=== PATIENT | male | born 2000 | race African-American/Black ===

== ENCOUNTER 2024-08-07 21:11 | Observation (INO) | payer SELFPAY ==
--- NOTE | 2024-08-07 | ECG_ITS ---
Test Reason : CHEST PAIN Blood Pressure : / mmHG Vent. Rate : 073 BPM Atrial Rate : 073 BPM P-R Int : 160 ms QRS Dur : 090 ms QT Int : 362 ms P-R-T Axes : 070 083 053 degrees QTc Int : 398 ms Normal sinus rhythm with sinus arrhythmia Normal ECG No previous ECGs available Referred By: Generic ED Physician Electronically Signed By:JONO PARRISH MD
--- NOTE | ~2024-08-07 | XR_ITS ---
EXAMINATION: XR CHEST CLINICAL INFORMATION: Cough and chest pain COMPARISON: None available. TECHNIQUE: 2 views of the chest were obtained. FINDINGS: No significant abnormality is noted involving the heart, lungs, mediastinum, bony thorax or soft tissues. XR/XR chest 2V IMPRESSION: Unremarkable examination. Electronically signed by: Raul Murray MD 08/07/2024 10:52 PM [facility]
[2024-08-07 21:23] VITALS: BP 139/71; PULSE 63; RESP 18; TEMP 36.7; O2SAT 96; BMI 22.2
--- NOTE | 2024-08-07 22:17 | ED.URI ---
HPI - URI/Sore Throat General Chief Complaint: Upper Respiratory Symptoms Stated Complaint: sob, chest pain Time Seen by Provider: 08/07/24 22:07 History of Present Illness HPI Narrative: Patient is 24 years old positive history of asthma. Patient has not been admitted to the hospital over 10 years. No history of smoking. Positive coughing upper respiratory symptoms. Patient is from home. Using jwzl-wiz-hxcokhr medication but to no avail. No fever no chills. Related Data Allergies Allergy/AdvReac Type Severity Reaction Status Date / Time flu shot Allergy Unknown Uncoded 08/07/24 21:26 Review of Systems Review of Systems: Positive coughing upper respiratory symptoms Positive wheezing Yes all other systems are reviewed and are negative [facility] Past Medical History Attestation statement: The following information was validated with the patient. Social History Social History Substance Use Type: Marijuana Advance Directives: No Advance Directives Information Provided: No Do you have a plan to hurt others: No Plan Physical Exam Vital Signs: Vital Signs: Last Vital Signs Temp 98.0 F 08/07/24 21:23 Pulse 97 08/07/24 22:28 Resp 18 08/07/24 22:28 BP 139/71 08/07/24 21:23 Pulse Ox 98 08/07/24 22:55 O2 Del Method Room Air 08/07/24 22:55 BMI result Body Mass Index 22.2 Appearance: Alert. Oriented X3. No acute distress. Eyes: Pupils equal, round and reactive to light. ENT: Pharynx normal. Neck: Normal inspection. Neck supple. No lymph nodes noted. No crepitus CVS: Normal heart rate and rhythm. Pulses normal. Normal S1 and S2 Respiratory: No respiratory distress. Positive wheezing bilaterally. Abdomen: Soft and nontender. No rigidity. No distention. good BS x4 Skin: Skin warm and dry. Normal skin color. Normal skin turgor. Extremities: No lower extremity edema. Neurovascular intact to all extremities. No Lacerations. No Rash Neuro: Oriented X 3. No motor deficit. No sensory deficit. Moving all extermities. No slurred speech Medications Administered Discontinued Medications Generic Name Dose Route Start Last Admin Trade Name Freq PRN Reason Stop Dose Admin Albuterol Sulfate 2.5 mg/ 5 mg 08/07/24 22:16 08/07/24 22:25 Albuterol Sulfate 2.5 mg INHALE 08/07/24 22:17 5 mg ONCE ONE Administration Albuterol/Ipratropium 3 ml 08/07/24 22:16 08/07/24 22:25 Albuterol/Iprat 2.5/0.5mg 3 Ml Ampul.Neb INHALE 08/07/24 22:17 3 ml ONCE ONE Administration Prednisone 60 mg 08/07/24 22:16 08/07/24 22:21 Prednisone 20 Mg Tablet PO 08/07/24 22:17 60 mg ONCE ONE Administration Medical Decision Making Medical Decision Making [facility] Narrative: Patient is 24 years old presents today with having history of asthma. Been admitted in the past. Presented today with having increasing shortness of breath. Wheezing. Patient's COVID flu RSV were all negative. A dose of steroid was given. A dual neb along with 2 albuterol neb treatment was given. Patient was reassess still having extreme wheezing bilaterally. Not moving good air. Had a long discussion with patient. He is willing to stay in the hospital. Patient's case discussed with the hospitalist team. They wanted some additional blood work which was ordered. Currently in stable condition awaiting admission my interpretation of patient's chest x-ray showed no focal infiltrates. Additional magnesium and treatment will be ordered. Differential Diagnosis Differential Diagnoses: The differential diagnosis associated with the presentation includes Asthma, flu, COVID, RSV Admission/Observation Consideration of admission/observation: Escalation of care including admission/observation considered Consult Healthcare Provider Management of the patient was discussed with: Hospitalist Lab Data [facility] Lab Attestation statement: I reviewed the patient's lab results. Labs: Lab Results 08/07/24 Range/Units 21:46 Influenza Type A (PCR) NEGATIVE (Negative) Influenza Type B (PCR) NEGATIVE (Negative) RSV RNA Qual (PCR) NEGATIVE (Negative) SARS-CoV-2 RNA (RT-PCR) NEGATIVE (Negative) Independent Interpretation I performed an independent interpretation of an: Plain X-Ray (Chest x-ray showed no focal infiltrate) Radiology Impression Discussion of test interpretation with radiology: I have reviewed the radiologist's reading. External Record Review External record reviewed: Inpatient record Discharge Plan Discharge Patient Disposition: Admitted As Inpatient Print Language: Nigerien
[2024-08-07] MEDS: predniSONE 20 MG TABLET 60 MG PO (22:21)
--- NOTE | 2024-08-07 22:23 | PC.NURSE ---
Provider into assess pt, respiratory called for a breathing treatment, pt is able to speak in full sentences, pt has wheeze through out uppper and lower lungs, no belly retraction.
[2024-08-07] MEDS: Albuterol/Iprat 2.5/0.5MG 3 ML AMPUL.NEB INHALE (22:25)
[2024-08-07] MEDS: Albuterol Sulfate 2.5 MG, Albuterol Sulfate (0.083%) 2.5 MG 5 MG INHALE (22:25)
[2024-08-07 22:28] VITALS: PULSE 97; RESP 18; O2SAT 98
[2024-08-07 22:28] LABS: Influenza A PCR NEGATIVE (Negative); Influenza B PCR NEGATIVE (Negative); Resp Syncy Virus RNA Qual PCR NEGATIVE (Negative); SARS COV2 PCR INHOUSE NEGATIVE (Negative)
[2024-08-07 22:55] VITALS: O2SAT 98
[2024-08-07] MEDS: Albuterol Sulfate (0.083%) 2.5 MG/3 ML VIAL.NEB 5 MG INHALE (23:57)
[2024-08-07 23:59] VITALS: PULSE 100; RESP 14; O2SAT 97
[2024-08-08] VITALS (15 sets, daily range): BP systolic 112–133; BP diastolic 56–82; PULSE 76–113; RESP 14–20; TEMP 36.4–36.9; O2SAT 94–98; BMI 22.2
[2024-08-08 00:06] LABS: MANUAL DIFF FLAG NO
[2024-08-08 00:07] LABS: Basophils Absolute Auto 0.1 X10*3/uL (0.0-0.2); Basophils Percent Auto 0.5 % (0-2); Eosinophils Absolute Auto 0.3 X10*3/uL (0.0-0.4); Eosinophils Percent Auto 2.6 % (0-4); Hemoglobin 15.8 g/dl (14.0-18.0); Imm Gran Abs Auto 0.04 X10*3/uL (0.00-0.03); Imm Gran Pct Auto 0.3 % (0.0-0.4); Lymphocytes Absolute Auto 1.2 X10*3/uL (1.2-4.9); Lymphocytes Percent Auto 9.5 % (20-40); Mean Corpuscular HGB Conc 34.3 g/dl (31.0-36.0); Mean Corpuscular Hemoglobin 29.1 pg (27.0-33.0); Mean Corpuscular Volume 84.7 fL (80.0-98.0); Mean Platelet Volume 10.4 fL (9.4-12.4); Monocytes Absolute Auto 0.6 X10*3/uL (0.1-1.2); Monocytes Percent Auto 4.5 % (2-11); Neutrophils Absolute Auto 10.6 x10*3/uL (2.0-8.3); Neutrophils Percent Auto 82.6 % (45-73); Platelet Count 202 X10*3/uL (160-400); Red Blood Count 5.43 X10*6/uL (4.60-5.80); Red Cell Distribution Width 13.3 % (11.0-16.0); White Blood Count 12.8 X10*3/uL (4.8-10.8)
[2024-08-08] MEDS: Magnesium Sulfate/H2O 2 GM/50 ML PIGGYBACK IV (00:15)
[2024-08-08 00:22] LABS: Anion Gap 12 (12-20); Blood Urea Nitrogen 11 mg/dL (9-16); Calcium 9.8 mg/dL (8.4-10.2); Carbon Dioxide 26 mmol/L (22-29); Chloride 104 mmol/L (96-108); Estimated Glomerular Filt Rate > 60; Glucose Random 114 mg/dL (60-115); Potassium 3.8 mmol/L (3.3-5.1); Sodium 138 mmol/L (135-145)
--- NOTE | 2024-08-08 01:23 | P.HPHOSP_ITS ---
History of Present Illness Date of Service: 08/08/24 Attending physician on admission: Audrey Damon Chief Complaint: Shortness of breaths Reagan Fang is a very pleasant 24 years old man with past medical history significant for asthma presents to the emergency department complaining of worsening shortness of breath over the last 2 days associated with bubbly sensation in the middle of his chest associated with dry cough, wheezing and left-sided rib cage pain with inspiration. He did reported episode sweating and suggestive fever. He has been taking bdxk-syj-wvsgrdi cough medications with no significant improvement of symptoms. He smoked marijuana very frequently. Did not report tobacco smoking, alcohol abuse or illicit drug use. He is not using daily inhalers. Last asthma attack was about 10 years ago. In the ED, he was found to have stable vital signs. His oxygen saturation is 97% on room air. Blood workup was remarkable for leukocytosis of 12.9 (after steroids given). Hemoglobin and platelets are normal. Electrolytes and renal function are normal. Viral testing is negative for influenza, RSV and COVID. CXR showed no pneumothorax, consolidation or pleural effusions. ECG showed normal sinus rhythm (HR 73 bpm) and no ischemic changes. ED tx: Prednisone 60 mg p.o., DuoNeb X2, magnesium sulfate 2 g IV Review of Systems 2 Review of Systems: All 12 systems were reviewed and normal except as noted in HPI. [facility] Medical History (Updated 08/08/24 @ 01:36 by Audrey Damon MD) Asthma Social History Substance Use Type: Marijuana Advance Directives: No Advance Directives Information Provided: No Do you have a plan to hurt others: No Plan Meds Allergies Allergy/AdvReac Type Severity Reaction Status Date / Time nuts Allergy Unknown Unknown Uncoded 08/08/24 01:19 Shellfish Allergy Unknown Unknown Uncoded 08/08/24 01:26 flu shot Allergy Unknown Uncoded 08/07/24 21:26 Active Medications: Current Medications Acetaminophen (Acetaminophen 325 Mg Tablet) 975 mg PO Q6H PRN PRN Reason: Pain, Mild (Pain Scale 1-3), fever or headache Albuterol Sulfate (Albuterol Sulfate (0.083%) 2.5 Mg/3 Ml Vial.Neb) 2.5 mg INHALE Q2H PRN PRN Reason: Shortness of Breath/Wheezing Albuterol/Ipratropium (Albuterol/Iprat 2.5/0.5mg 3 Ml Ampul.Neb) 3 ml INHALE RQ4H [facility] Albuterol Sulfate 2.5 mg/ (Albuterol/Ipratropium 3 ml) 0 mg INHALE ONCE STA Stop: 08/08/24 01:22 Magnesium Sulfate (Magnesium Sulfate/H2o) 2 gm in 50 mls @ 25 mls/hr IV ONCE ONE Stop: 08/08/24 01:53 Last Admin: 08/08/24 00:15 Dose: 25 mls/hr Melatonin (Melatonin 3 Mg Tablet) 6 mg PO BEDTIME PRN PRN Reason: Insomnia Methylprednisolone Sodium Succinate (Methylprednisolone Sod Succ 125 Mg/2 Ml Vial) 80 mg IVPUSH DAILY [facility] Sodium Chloride (0.9 % Sodium Chloride Flush 3 Ml Syringe) 3 ml IVFLUSH QSHIFT [facility] Physical Exam 2 Vital Signs and Narrative: Vital Signs: Last Vital Signs Temp 98.4 F 08/08/24 00:00 Pulse 113 H 08/08/24 00:00 Resp 20 08/08/24 00:00 BP 131/77 08/08/24 00:00 Pulse Ox 97 08/08/24 00:00 O2 Del Method Room Air 08/08/24 00:00 BMI result Body Mass Index 22.2 Constitutional - Awake and Alert, No apparent distress. Pleasant. Cooperative. Afebrile. HEENT - PER, EOMI. Oropharynx minimally hyperemic without exudate. Heart - S1S2, RRR, No murmurs. Lungs - Normal lung expansion, Normal respiratory effort, No respiratory distress. No tachypnea. End expiratory wheezes. No crackles. Abdomen - Nontender. - No CVA tenderness Extremities - no calf tenderness bilaterally, no swelling Musculoskeletal - Normal inspection, normal ROM Skin - Warm/Dry Neurological - Alert & oriented x3. No focal weakness grossly noted. Normal speech. Psychological - Appropriate affect Results Labs 08/08/24 00:02 08/08/24 00:02 Labs: Laboratory Results - last 24 hr 08/07/24 08/08/24 21:46 00:02 MCV 84.7 MCH 29.1 MCHC 34.3 RDW 13.3 Plt Count 202 MPV 10.4 Immature Gran % (Auto) 0.3 Neut % (Auto) 82.6 H Lymph % (Auto) 9.5 L [place] % (Auto) 4.5 Eos % (Auto) 2.6 Baso % (Auto) 0.5 Lymph # (Auto) 1.2 [place] # (Auto) 0.6 Eos # (Auto) 0.3 Baso # (Auto) 0.1 Abs Immat Gran (auto) 0.04 H Absolute Neuts (auto) 10.6 H Absolute Nucleated RBC 0.000 Nucleated RBC % (auto) 0.0 Anion Gap 12 Estim Creat Clear Calc 114.0 Estimated GFR > 60 Random Glucose 114 Calcium 9.8 Influenza Type A (PCR) NEGATIVE Influenza Type B (PCR) NEGATIVE RSV RNA Qual (PCR) NEGATIVE SARS-CoV-2 RNA (RT-PCR) NEGATIVE Imaging Radiologist's Impressions: Impressions Chest X-Ray 08/07/24 21:32 IMPRESSION: Unremarkable examination. Electronically signed by: Raul Murray MD 08/07/2024 10:52 PM [facility] Assessment and Plan (1) Asthma exacerbation: Qualifiers: Asthma severity: unspecified severity Asthma persistence: unspecified Qualified Code(s): J45.901 - Unspecified asthma with (acute) exacerbation Status: Acute Plan Reagan Fang is a 24 y/o man admitted with: * Acute asthma exacerbation; pt is stating he feels the same. No hypoxia (O2 sat 97% on RA). No respiratory distress. No significant leukocytosis (however, CBC was obtained after prednisone was given). CXR is normal. Observation. Pulse oximetry. Continue bronchodilator therapy and steroids. Mucinex 600 mg PO bid. Advised to consider quitting smoking marijuana. Quality Stroke Does the patient have a stroke diagnosis?: No VTE Prior VTE?: No VTE Risk Level:: Medical - low VTE Device Contraindication: Treatment Not Indicated VTE Drug Contraindication: Treatment Not Indicated
[2024-08-08] MEDS: guaiFENesin DM 600/30 1 TAB TAB.ER.12H PO ×3 (01:35→20:13)
[2024-08-08] MEDS: Albuterol Sulfate 2.5 MG, Albuterol/Iprat 2.5/0.5MG 3 ML 3 ML INHALE (01:42)
[2024-08-08] MEDS: Albuterol/Iprat 2.5/0.5MG 3 ML AMPUL.NEB INHALE ×5 (06:10→23:52)
--- NOTE | 2024-08-08 06:55 | PC.NURSE ---
report given to Jess. DUVAL
[2024-08-08] MEDS: 0.9 % Sodium Chloride Flush 3 ML SYRINGE IVFLUSH ×3 (07:34→20:13)
--- NOTE | 2024-08-08 08:16 | HO.STUDENTPN ---
Subjective Subjective Date of Service: 08/08/24 Interval History: Reports feeling the same generally- still wheezy, but little bit clearer and less coughing Review of Systems All 12 systems were reviewed and normal except as noted in HPI. Physical Exam Vital Signs: Vital Signs: Last Vital Signs Temp 98.5 F 08/08/24 06:00 Pulse 88 08/08/24 07:35 Resp 19 08/08/24 07:35 BP 118/59 L 08/08/24 07:35 Pulse Ox 97 08/08/24 07:35 O2 Del Method Room Air 08/08/24 07:35 BMI result Body Mass Index 22.2 Const: Orientation/consciousness: patient oriented x3 Chest: Chest palpation & inspection: normal inspection of the chest Resp: Effort & Inspection: normal respiratory effort, able to speak in complete sentences and Actively coughing Quality: dry Auscultation: wheezes expiratory wheezes and throughout Cardio: Rate: regular rate Rhythm: regular rhythm Heart sounds: S1 normal heart sound present and S2 normal heart sound present Neuro: General: patient oriented x3 Objective Data Active Medications Acetaminophen (Acetaminophen 325 Mg Tablet) 975 mg PO Q6H PRN PRN Reason: Pain, Mild (Pain Scale 1-3), fever or headache Albuterol Sulfate (Albuterol Sulfate (0.083%) 2.5 Mg/3 Ml Vial.Neb) 2.5 mg INHALE Q2H PRN PRN Reason: Shortness of Breath/Wheezing Albuterol/Ipratropium (Albuterol/Iprat 2.5/0.5mg 3 Ml Ampul.Neb) 3 ml INHALE RQ4H [facility] Last Admin: 08/08/24 06:10 Dose: 3 ml Documented By: KYRIE Guaifenesin/Dextromethorphan (Guaifenesin Dm 600/30 1 Tab Tab.Er.12h) 1 tab PO BID [facility] Last Admin: 08/08/24 01:35 Dose: 1 tab Documented By: ISABEL Melatonin (Melatonin 3 Mg Tablet) 6 mg PO BEDTIME PRN PRN Reason: Insomnia Methylprednisolone Sodium Succinate (Methylprednisolone Sod Succ 125 Mg/2 Ml Vial) 80 mg IVPUSH DAILY [facility] Sodium Chloride (0.9 % Sodium Chloride Flush 3 Ml Syringe) 3 ml IVFLUSH QSHIFT [facility] Last Admin: 08/08/24 07:34 Dose: 3 ml Documented By: SOCO Labs 08/08/24 00:02 08/08/24 00:02 Labs: Laboratory Results - last 24 hr 08/07/24 08/08/24 21:46 00:02 MCV 84.7 MCH 29.1 MCHC 34.3 RDW 13.3 Plt Count 202 MPV 10.4 Immature Gran % (Auto) 0.3 Neut % (Auto) 82.6 H Lymph % (Auto) 9.5 L [place] % (Auto) 4.5 Eos % (Auto) 2.6 Baso % (Auto) 0.5 Lymph # (Auto) 1.2 [place] # (Auto) 0.6 Eos # (Auto) 0.3 Baso # (Auto) 0.1 Abs Immat Gran (auto) 0.04 H Absolute Neuts (auto) 10.6 H Absolute Nucleated RBC 0.000 Nucleated RBC % (auto) 0.0 Anion Gap 12 Estim Creat Clear Calc 114.0 Estimated GFR > 60 Random Glucose 114 Calcium 9.8 Influenza Type A (PCR) NEGATIVE Influenza Type B (PCR) NEGATIVE RSV RNA Qual (PCR) NEGATIVE SARS-CoV-2 RNA (RT-PCR) NEGATIVE Assessment and Plan Plan 24 yo male with PMH significant for asthma, who presents to ED for increased shortness of breath x 2 days Quality Stroke Does the patient have a stroke diagnosis?: No VTE Prior VTE?: No VTE Risk Level:: Medical - low VTE Device Contraindication: Treatment Not Indicated VTE Drug Contraindication: Treatment Not Indicated
[2024-08-08] MEDS: methylPREDNISolone Sod Succ 125 MG/2 ML VIAL 80 MG IVPUSH (08:29)
--- NOTE | 2024-08-08 08:43 | PC.NURSE ---
Pt alert and oriented, breathing even and unlabored but wheezing remains bilat. SPO2 >94% on RA. NSR on bedside security monitor. Denies pain, reports a tightness and weird feeling in his chest that has been ongoing since this started.
--- NOTE | 2024-08-08 09:41 | PM.EVENT ---
Event Note Date of Service: 08/08/24 Event Note: 24 year old man admitted with acute asthma exacerbation Acute asthma exacerbation No hypoxia noted No consolidation or effusion on chest x-ray IV Solu-Medrol, scheduled DuoNebs Not currently on oxygen but may use oxygen to keep oxygen saturation greater than 92% Incentive spirometer Leukocytosis Likely secondary to steroid use Marijuana use Discussed importance of cessation to avoid triggers of asthma exacerbation DVT prophylaxis with early ambulation Full code Time Spent With Patient Time: Total time managing care of this patient today ____ minutes.
--- NOTE | 2024-08-08 09:42 | PHA.MEDREC ---
Addendum entered by Kermit Metzger RPh 08/08/24 10:17: Reviewed by [facility] Original Note: Pharmacy Consult ? Medication Reconciliation Pharmacy has completed the medication reconciliation. Patient states he is not on any medications.
--- NOTE | 2024-08-08 14:06 | MHC.CM.PN ---
pt lives alone is working and indepedent has own ride home
[2024-08-09] VITALS (9 sets, daily range): BP systolic 122–141; BP diastolic 59–71; PULSE 85–113; RESP 16–18; TEMP 36.4–37.1; O2SAT 96–99
[2024-08-09] MEDS: Albuterol/Iprat 2.5/0.5MG 3 ML AMPUL.NEB INHALE ×5 (04:12→19:30)
[2024-08-09] MEDS: 0.9 % Sodium Chloride Flush 3 ML SYRINGE IVFLUSH ×3 (09:17→20:11)
[2024-08-09] MEDS: methylPREDNISolone Sod Succ 125 MG/2 ML VIAL 80 MG IVPUSH (09:17)
[2024-08-09] MEDS: guaiFENesin DM 600/30 1 TAB TAB.ER.12H PO ×2 (09:17→20:11)
--- NOTE | 2024-08-09 09:17 | HO.PM.IMPN ---
Subjective Subjective Date of Service: 08/09/24 Interval History: Follow-up asthma exacerbation Still with some expiratory wheezing Review of Systems Review of Systems: Yes all other systems are reviewed and are negative Respiratory Respiratory: Reports cough (dry) Physical Exam Vital Signs: Vital Signs: Last Vital Signs Temp 98 F 08/09/24 08:00 Pulse 95 08/09/24 08:13 Resp 18 08/09/24 08:13 BP 122/66 08/09/24 08:00 Pulse Ox 97 08/09/24 08:00 O2 Del Method Room Air 08/09/24 08:00 BMI result Body Mass Index 22.2 Appearing in no acute distress lung sounds expiratory wheezing heart regular rate rhythm, clear S1, S2 positive bowel sounds, abdomen is soft, nontender neuro patient is alert x3, no focal deficits Chest: Chest palpation & inspection: normal inspection of the chest Resp: Effort & Inspection: normal respiratory effort and able to speak in complete sentences Auscultation: wheezes expiratory wheezes and throughout Cardio: Rate: regular rate Rhythm: regular rhythm Objective Data Active Medications Acetaminophen (Acetaminophen 325 Mg Tablet) 975 mg PO Q6H PRN PRN Reason: Pain, Mild (Pain Scale 1-3), fever or headache Albuterol Sulfate (Albuterol Sulfate (0.083%) 2.5 Mg/3 Ml Vial.Neb) 2.5 mg INHALE Q2H PRN PRN Reason: Shortness of Breath/Wheezing Albuterol/Ipratropium (Albuterol/Iprat 2.5/0.5mg 3 Ml Ampul.Neb) 3 ml INHALE RQ4H [facility] Last Admin: 08/09/24 08:11 Dose: 3 ml Documented By: NEIL Guaifenesin/Dextromethorphan (Guaifenesin Dm 600/30 1 Tab Tab.Er.12h) 1 tab PO BID [facility] Last Admin: 08/08/24 20:13 Dose: 1 tab Documented By: LUÍS Melatonin (Melatonin 3 Mg Tablet) 6 mg PO BEDTIME PRN PRN Reason: Insomnia Methylprednisolone Sodium Succinate (Methylprednisolone Sod Succ 125 Mg/2 Ml Vial) 80 mg IVPUSH DAILY [facility] Last Admin: 08/08/24 08:29 Dose: 80 mg Documented By: SOCO Sodium Chloride (0.9 % Sodium Chloride Flush 3 Ml Syringe) 3 ml IVFLUSH QSHIFT [facility] Last Admin: 08/08/24 20:13 Dose: 3 ml Documented By: LUÍS Labs 08/08/24 00:02 08/08/24 00:02 Assessment and Plan (1) Asthma exacerbation: Status: Acute Plan 24 yo male here with acute asthma exacerbation Asthma exacerbation no hypoxic events CXR negative for consolidation of effusion continue IV solumedrol, scheduled duone sat goal >92% incentive spirometry leukocytosis likely related to steroid use marijuana use continue to recommend cessation DVT prophylaxis with early ambulation Attending Dr. Mantilla Full code Quality Stroke Does the patient have a stroke diagnosis?: No VTE Prior VTE?: No VTE Risk Level:: Medical - low VTE Device Contraindication: Treatment Not Indicated VTE Drug Contraindication: Treatment Not Indicated
[2024-08-10 00:03] VITALS: PULSE 107; RESP 16; O2SAT 95
[2024-08-10] MEDS: Albuterol/Iprat 2.5/0.5MG 3 ML AMPUL.NEB INHALE ×2 (00:03→07:48)
[2024-08-10 03:09] VITALS: BP 129/83; PULSE 99; RESP 16; TEMP 36.4; O2SAT 98
[2024-08-10] MEDS: 0.9 % Sodium Chloride Flush 3 ML SYRINGE IVFLUSH (07:36)
[2024-08-10] MEDS: methylPREDNISolone Sod Succ 125 MG/2 ML VIAL 80 MG IVPUSH (07:37)
--- NOTE | 2024-08-10 07:37 | P.DS_ITS ---
DS: Providers Provider Date of Service: 08/10/24 Date of admission: 08/08/24 01:16 Primary care physician: Unknown Physician DS: Diagnosis Discharge Diagnosis (1) Asthma exacerbation: Status: Acute DS: Summary Hospital Course Hospital Course: History and physical as per admitting provider. Reagan Fang is a very pleasant 24 years old man with past medical history significant for asthma presents to the emergency department complaining of worsening shortness of tapan ath over the last 2 days associated with bubbly sensation in the middle of his chest associated with dry cough, wheezing and left-sided rib cage pain with inspiration. He did reported episode sweating and suggestive fever. He has been taking medj-czs-gcedouw cough medications with no significant improvement of symptoms. He smoked marijuana very frequently. Did not report tobacco smoking, alcohol abuse or illicit drug use. He is not using daily inhalers. Last asthma attack was about 10 years ago. In the ED, he was found to have stable vital signs. His oxygen saturation is 97% on room air. Blood workup was remarkable for leukocytosis of 12.9 (after steroids given). Hemoglobin and platelets are normal. Electrolytes and renal function are normal. Viral testing is negative for influenza, RSV and COVID. CXR showed no pneumothorax, consolidation or pleural effusions. ECG showed normal sinus rhythm (HR 73 bpm) and no ischemic changes. ED tx: Prednisone 60 mg p.o., DuoNeb X2, magnesium sulfate 2 g IV 24-year-old man treated for asthma exacerbation with no hypoxic events. Chest x-ray was negative for consolidation or effusion. He was treated with IV Solu- Medrol and scheduled DuoNebs and incentive spirometry. Did have some noted leukocytosis but that was likely secondary to steroid use. He also reported using marijuana and cessation was discussed. Plan is to discharge patient home with short burst of prednisone, a few days of cough suppressant to use as needed and an albuterol inhaler. Time Attestation Discharge Coordination Time (in mins): 35 Quality: Safe Use of Opioids Does Pt have an Active Cancer Diagnosis on the Problem List?: No Quality: Stroke Does the patient have a stroke diagnosis?: No Physical Exam Vital Signs: Vital Signs: Last Vital Signs Temp 97.5 F 08/10/24 03:09 Pulse 99 08/10/24 03:09 Resp 16 08/10/24 03:09 BP 129/83 08/10/24 03:09 Pulse Ox 98 08/10/24 03:09 O2 Del Method Room Air 08/10/24 03:09 O2 Flow Rate 5 08/09/24 15:28 BMI result Body Mass Index 22.2 Appearing in no acute distress head is normocephalic atraumatic eyes pupils are PERRLA sclera is anicteric mouth throat mucous membranes are intact and moist neck is supple no lymphadenopathy, no JVD noted lung sounds mild exp wheezing heart regular rate rhythm, clear S1, S2 positive bowel sounds, abdomen is soft, nontender neuro patient is alert x3, no focal deficits Discharge Plan Discharge Anticipated Discharge Date/Time: 08/10/24 07:34 Patient Disposition: Home, Self-Care Discharge Diagnosis: Asthma exacerbation, exercise induced asthma Discharge Medications: New Mucus DM 30-600 mg Tablet Extended Release 12 Hr 1 tab PO BID Qty: 10 0RF prednisone 10 mg tablet 40 mg PO DIRECTED Qty: 3 0RF Rx Instructions: see taper instructions albuterol sulfate 90 mcg/actuation aerosol powdr breath activated 2 inh inhalation Q4H PRN (Reason: shortness of breath or wheezing) Qty: 1 0RF Discharge Orders: Discharge Order (Routine); Ordered 08/10/24 Ordered By: Aurora Nova Diet: Advance to usual diet Activity on Discharge: As tolerated Stand Alone Forms: Patient Portal Discharge page Print Language: Somali Care Plan Goals: You will be sent home with 3 more days of oral prednisone. You will also be sent home with an albuterol inhaler that you can use as needed with shortness of breath or wheezing especially with exercise. Health Concerns: Asthma exacerbation/exercise-induced asthma Plan of Treatment: Follow-up with your primary care provider as needed Take all medications as prescribed Assessment: See discharge summary
[2024-08-10] MEDS: guaiFENesin DM 600/30 1 TAB TAB.ER.12H PO (07:38)
[2024-08-10 07:50] VITALS: PULSE 98; RESP 16; O2SAT 99
[2024-08-10 07:57] VITALS: BP 118/68; PULSE 95; RESP 20; TEMP 36.4; O2SAT 99
--- NOTE | 2024-08-10 09:55 | MHC.CM.PN ---
PT DCD HOME SELF CARE
== END 2024-08-10 10:03 | disposition home or self-care (01) ==
LOC: HO.ED 08-08 00:01 → HO.EDOVER 08-08 01:41 → HO.S3 08-08 12:19
PROVIDERS: Admitting Provider Internal Medicine; Emergency Provider Emergency Medicine Emergency Medical Services; Visit Provider Nurse Practitioner Acute Care
DX: J45.901 Unspecified asthma with (acute) exacerbation (principal); R07.9 Chest pain, unspecified; R05.9 Cough, unspecified; D72.829 Elevated white blood cell count, unspecified; F12.90 Cannabis use, unspecified, uncomplicated; Z03.818 Encounter for observation for suspected exposure to other biological agents ruled out
CPT/HCPCS: 0241U; 36415; 71046; 80048; 85025; 93005; 94640; 96365; 96375; 96376; 99221; 99285; J2919; J3475

== ENCOUNTER → 2024-08-07 21:12 | Outpatient (BNV) | payer BC, MEDICAID, SELFPAY | PROVIDERS: Admitting Provider Internal Medicine; Emergency Provider Emergency Medicine Emergency Medical Services; Visit Provider Internal Medicine Cardiovascular Disease | DX: I49.9 Cardiac arrhythmia, unspecified (principal) | CPT/HCPCS: 93010 ==

== ENCOUNTER → 2024-08-07 21:59 | Outpatient (BNV) | payer BC, MEDICAID, SELFPAY | PROVIDERS: Emergency Provider Emergency Medicine Emergency Medical Services; Visit Provider Internal Medicine | DX: J45.901 Unspecified asthma with (acute) exacerbation (principal) | CPT/HCPCS: 99222; 99232; 99239; 99499 ==

== ENCOUNTER 2025-09-18 02:11 | Emergency (ER) | payer SELFPAY ==
[2025-09-18 02:21] VITALS: BP 123/65; PULSE 63; RESP 16; TEMP 36.9; O2SAT 99; BMI 25.1
--- NOTE | 2025-09-18 04:18 | ED_ITS ---
HPI - Skin/Abscess/Foreign Bdy General Chief complaint: Skin/Abscess/Foreign Body Stated complaint: Skin patches spreading Time Seen by Provider: 09/18/25 03:28 Source: patient Mode of arrival: ambulatory Limitations: no limitations History of Present Illness ED Provider: Dr. Jannette Anderson HPI narrative: Patient comes to the emergency room complaining of an itchy scaly rash in elbows, forearms, behind the neck and behind the knees. Patient states that as a child he is to have eczema. Patient states that now he has been working in a freezer and his skin condition has exacerbated. Patient denies any fever chills. Related Data Previous Rx's ?Medication ?Instructions ?Recorded albuterol sulfate 90 mcg/actuation 2 inh inhalation Q4 H PRN shortness 08/10/24 breath activated powder inhaler of breath or wheezing #1 ea dextromethorphan-guaifenesin 30 1 tab PO BID #10 tabs 08/10/24 mg-600 mg tablet extended hr (Mucus DM) prednisone 10 mg tablet 40 mg (4 x 10 mg) PO DIRE CTED 08/10/24 #20 tabs triamcinolone acetonide 0.1 % 1 appl topical TID #80 g mimi 09/18/25 topical cream Allergies Allergy/AdvReac Type Severity Reaction Status Date / Time nuts Allergy Unknown Unknown Uncoded 09/18/25 02:24 Shellfish Allergy Unknown Unknown Uncoded 09/18/25 02:24 flu shot Allergy Unknown Uncoded 09/18/25 02:24 Review of Systems Review of Systems: Constitutional : No Weight loss, No Fever, No Chills, No Night Sweats, No Fatigue, No Malaise ENT/Mouth : No Hearing loss, No Ear Pain, No Nasal Congestion, No Sinus Pain, No Hoarseness, No sore throat, No Rhinorrhea, No Swallowing Difficulty Eyes: No Eye Pain, No Swelling, No Redness, No Foreign Body, No Discharge, No Vision Changes Cardiovascular : No Chest Pain, No SOB, No Dyspnea on Exertion, No Orthopnea, No Edema, No Palpitations Respiratory : No Cough, No Sputum, No Wheezing, No Smoke Exposure, No Dyspnea Gastrointestinal : No Nausea, No Vomiting, No Diarrhea, No Constipation, No abdominal Pain, No Hematochezia, No Melena Genitourinary : no irregular bleeding, No Dysuria, No Urinary Frequency, No Hematuria, No Urinary Incontinence, No Urgency, No Flank Pain, No Urinary Flow Changes, No Hesitancy Musculoskeletal : No joint pain, No Myalgias, No Joint Swelling Skin : Patient complaining of an itchy scaly rash in forearms and lower extremities behind the knees Neuro : No Weakness, No Numbness, No Paresthesias, No Loss of Consciousness, No Dizziness, No Headache Psych : No Anxiety/Panic, No Depression, No SI/HI/AH/VH, No Social Issues, Heme/Lymph: No Bruising, No Bleeding,No Lymphadenopathy Endocrine : No Polyuria, No Polydipsia, No Temperature Intolerance [facility] Past Medical History Medical History Asthma Social History Social History Patient Tobacco Use Status: Never used Tobacco Substance Use Type: Marijuana Advance Directives: No Advance Directives Information Provided: No Do you have a plan to hurt others: No Plan service: No Physical Exam Exam: Exam: Appearance: Alert. Oriented X3. No acute distress. Eyes: Pupils equal, round and reactive to light. ENT: Pharynx normal. Neck: Normal inspection. Neck supple. No lymph nodes noted. No crepitus CVS: Normal heart rate and rhythm. Pulses normal. Normal S1 and S2 Respiratory: No respiratory distress. Breath sounds normal. No Wheezing. No rales Abdomen: Soft and nontender. No rigidity. No distention. Skin: Skin warm and dry. Normal skin color. Normal skin turgor. Patient has eczema in the forearms in the antecubital fossas, behind the neck and behind both knees Extremities: No lower extremity edema. No Lacerations. No Rash Neuro: Oriented X 3. No motor deficit. No sensory deficit. Moving all extremities. No slurred speech. CN 2 through 12 grossly intact Psych: calm, cooperative, normal affect Vital Signs: Vital Signs: Last Vital Signs Temp 98.5 F 09/18/25 02:21 Pulse 63 09/18/25 02:21 Resp 16 09/18/25 02:21 BP 123/65 09/18/25 02:21 Pulse Ox 99 09/18/25 02:21 O2 Del Method Room Air 09/18/25 02:21 BMI result Body Mass Index 25.1 Medical Decision Making Medical Decision Making MDM Narrative: I discussed with the patient to not apply this topical medication to the face. Patient does not have rash in the face. Patient states that he follow up with his primary care physician and get frontal to Dermatology. In the meantime, patient agreeable to start topical steroids. Discharge Plan Discharge Clinical Impression: Eczema Patient Disposition: Home, Self-Care Instructions: Dyshidrotic Eczema (ED), Cold Compress or Soak (ED) Additional Instructions: Please follow-up with your primary care physician tomorrow. If you have any worsening or new symptoms, please return to the emergency room or call 911 dyshidrotic eczema Prescriptions: New triamcinolone acetonide 0.1 % cream 1 appl topical TID Qty: 80 1RF No Action Mucus DM 30-600 mg Tablet Extended Release 12 Hr 1 tab PO BID Qty: 10 0RF albuterol sulfate 90 mcg/actuation aerosol powdr breath activated 2 inh inhalation Q4H PRN (Reason: shortness of breath or wheezing) Qty: 1 0RF prednisone 10 mg tablet 40 mg PO DIRECTED Qty: 20 0RF Rx Instructions: see taper instructions Print Language: Bulgarian
[2025-09-18 04:25] VITALS: BP 123/65; PULSE 63; RESP 16; TEMP 36.9; O2SAT 99
== END 2025-09-18 04:26 | disposition home or self-care (01) ==
PROVIDERS: Emergency Provider Emergency Medicine
DX: L30.9 Dermatitis, unspecified (principal)
CPT/HCPCS: 99282